=== PATIENT | female | born 1970 | race Caucasian/White ===

== ENCOUNTER 2023-01-13 13:34 | Outpatient (CLI) | payer MEDICARE, OTHER ==
[~2023-01-13 13:34] MED LIST: Magnevist 469MG/ML 20 ML VIAL ONE
== END 2023-01-13 13:35 | disposition home or self-care (01) ==
LOC: TBSIIMAG 13:34
PROVIDERS: ATTEND Neurological Surgery
DX: M54.50 Low back pain, unspecified (principal); M48.061 Spinal stenosis, lumbar region without neurogenic claudication; M48.07 Spinal stenosis, lumbosacral region; G03.1 Chronic meningitis; Z98.890 Other specified postprocedural states
CPT/HCPCS: 72158; A9579